=== PATIENT | female | born 1940 | race Caucasian/White ===

== ENCOUNTER → 2019-03-18 09:37 | Outpatient (CLI) | payer MEDICARE, OTHER ==
--- NOTE | 2019-03-19 15:51 | EC ---
PATIENT:MAZIN MALONE DATE OF SERVICE: 03/18/19 SEX: F MEDICAL RECORD: [id number] DATE OF : 44 [facility]ATION[facility] AGE OF PATIENT: 78 ADMISSION DATE: 03/18/19 REFERRING PHYSICIAN: INTERPRETING PHYSICIAN: JOVAN DAWN MD ECHOCARDIOGRAM REPORT ECHO CHARGES 4 ECHO COMPLETE Date: 03/18/19 CLINICAL DIAGNOSIS: AFIB/HTN ECHOCARDIOGRAPHIC MEASUREMENTS (adult normal given) AC root (d.<3.7cm) 3.1 cm LV Septum d (<1.2 cm> 1.1 cm Valve Excursion 1.2 cm LV Septum (systole) 1.5 cm Left Atria (s.<4.0cm> 4.0 cm LVPW d(<1.2cm) 1.3 cm RV (d.<2.3cm) 3.8 cm LVPW (sytole) 1.5 cm LV diastole(<5.6CM) 3.4 cm MV E-F(>70mm/sec) cm LV systole 2.3 cm LVOT Diameter 1.6 cm MV exc.(>10mm) 2.0 cm Est.ejection fraction (50-75%) % DOPPLER: LVIT cm/sec A 30.0 cm/sec E 133 cm/sec LA cm/sec RVSP 47 mmHg LVOT 96 cm/sec AOP1/2T m/s Asc. 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 Miller TAPE# PACS Pericardial Effusion N DATE OF SERVICE: Adequate 2D, color flow, spectral Doppler, and M-mode. Borderline LVH. LV internal dimensions are normal. Wall motion is normal. EF is greater than or equal to 55%. Aortic valve is tricuspid. No evidence of stenosis by Doppler interrogation. Left atrium is normal at 4.0 cm. Mitral valve shows no prolapse. Mild MR. Right-sided chambers are grossly normal. [id number] TR. TRANSINT:[id number] Voice Confirmation ID: [id number] DOCUMENT ID: [id number] ECHOCARDIOGRAM REPORT [id number] MAZIN MALONE,JOVAN Paulino MD at 1551 CC: [id number] DICTATION DATE: 03/19/19 1249 [employer]: 03/19/19 1258 DEP CLI 03/18/19 [place] [id number] [place] [id number]
== END | disposition home or self-care (01) ==
LOC: D.ECHO 09:37
PROVIDERS: ATTEND Internal Medicine Interventional Cardiology
DX: I48.91 Unspecified atrial fibrillation (principal)